=== PATIENT | male | born 1970 | race African-American/Black ===

== ENCOUNTER 2017-07-04 01:07 | Emergency (ER) | payer SELFPAY ==
[~2017-07-04] VITALS: Ht 188 cm; Wt 93.4 kg
[2017-07-04 01:13] VITALS: BP 170/127
[2017-07-04] MEDS ORDERED: cloNIDine HCL 0.1 MG TAB ONE (01:16)
[2017-07-04] MEDS ORDERED: cloNIDine HCL 0.1 MG TAB PO ONE (01:30)
== END 2017-07-04 03:01 | disposition left against medical advice (07) ==
LOC: ER 01:11
DX: S01.411A Laceration without foreign body of right cheek and temporomandibular area, initial encounter (principal); Z53.21 Procedure and treatment not carried out due to patient leaving prior to being seen by health care provider; W19.XXXA Unspecified fall, initial encounter; Y93.89 Activity, other specified; Y99.8 Other external cause status; Y92.89 Other specified places as the place of occurrence of the external cause

== ENCOUNTER 2017-07-05 13:02 | Emergency (ER) | payer SELFPAY ==
[~2017-07-05] VITALS: Ht 188 cm; Wt 95.3 kg
[2017-07-05 14:13] VITALS: BP 157/115
== END 2017-07-05 15:46 | disposition home or self-care (01) ==
LOC: ER 13:05
DX: S02.92XA Unspecified fracture of facial bones, initial encounter for closed fracture (principal); S01.83XA Puncture wound without foreign body of other part of head, initial encounter; W19.XXXA Unspecified fall, initial encounter; Y93.89 Activity, other specified; Y99.8 Other external cause status; Y92.89 Other specified places as the place of occurrence of the external cause
CPT/HCPCS: 70450; 70480

== ENCOUNTER 2019-04-28 14:02 | Emergency (ER) | payer MEDICAID ==
[~2019-04-28] VITALS: Ht 188 cm; Wt 90.7 kg
[2019-04-28 15:16] VITALS: BP 152/100
== END 2019-04-28 17:52 | disposition home or self-care (01) ==
LOC: ER 14:07
DX: S01.511A Laceration without foreign body of lip, initial encounter (principal); Y08.89XA Assault by other specified means, initial encounter; Y93.89 Activity, other specified; Y99.8 Other external cause status; Y92.89 Other specified places as the place of occurrence of the external cause
CPT/HCPCS: 12013; 71101

== ENCOUNTER 2019-05-17 16:00 | Emergency (ER) | payer MEDICAID ==
[~2019-05-17] VITALS: Ht 188 cm; Wt 90.7 kg
[2019-05-17 17:07] VITALS: BP 161/101
== END 2019-05-17 17:20 | disposition home or self-care (01) ==
LOC: ER 16:00
DX: S01.511D Laceration without foreign body of lip, subsequent encounter (principal); I10 Essential (primary) hypertension; X58.XXXD Exposure to other specified factors, subsequent encounter

== ENCOUNTER 2019-05-23 13:41 | Emergency (ER) | payer MEDICAID ==
[~2019-05-23] VITALS: Ht 188 cm; Wt 88.5 kg
[2019-05-23] MEDS ORDERED: SODIUM CHLORIDE 0.9% 1,000 ML IV ONE (14:15)
[2019-05-23] MEDS ORDERED: LORazepam 2MG/ML-1ML VIAL IV ONE (14:15)
[2019-05-23 15:07] LABS: Basophils # (auto) 0 uL; Eosinophils # (auto) 0.2 uL; Eosinophils % (auto) 5.1 % (0.0-7.0); Hematocrit 39.8 % (41.0-53.0); Hemoglobin 13.6 g/dL (13.5-17.5); Lymphocytes # (auto) 1.2 uL; Lymphocytes % (auto) 36.8 % (10.0-50.0); Mean Corpuscular Hemoglobin 30.9 pg (28.0-32.0); Mean Corpuscular Hgb Conc. 34.3 g/dL (32.0-36.0); Mean Corpuscular Volume 90.2 fL (80.0-100.0); Monocytes # (auto) 0.3 uL; Monocytes % (auto) 8.2 % (0.0-12.0); Neutrophils # (auto) 1.6 uL; Neutrophils % (auto) 48.9 % (37.0-80.0); Platelet Count (auto) 250 10^3/uL (140-450); Red Blood Cells 4.41 10^6/uL (4.5-5.90); Red Cell Distribution Width 13.2 % (11.8-14.3); White Blood Cell 3.4 10^3/uL (4.4-10.8)
[2019-05-23 15:31] LABS: Albumin 3.5 g/dL (3.4-5.0); BUN/Creatinine Ratio 16.7; Calcium 8.6 mg/dL (8.5-10.1); Potassium 4.2 mmol/L (3.5-5.1)
[2019-05-23 15:33] LABS: Bilirubin, Total 0.3 mg/dL (0.2-1.0); Total Protein 7.7 g/dL (6.4-8.2)
[2019-05-23 22:20] LABS: Alcohol, Urine < 3.0 mg/dL (0-5); Amphetamine Screen, Urine POSITIVE (NEGATIVE); Barbiturate Scree,Urine NEGATIVE (NEGATIVE); Benzodiazephine Screen, Urine NEGATIVE (NEGATIVE); Cannabinoid Screen, Urine NEGATIVE (NEGATIVE); Cocaine Screen, Urine NEGATIVE (NEGATIVE); Opiate Scree,Urine NEGATIVE (NEGATIVE); Phencyclidine Screen, Urine NEGATIVE (NEGATIVE)
[2019-05-24 08:31] VITALS: BP 150/93
== END 2019-05-24 09:48 | disposition home or self-care (01) ==
LOC: ER 13:41 → EDBD 13:41 → ER 05-24 09:48
DX: F31.9 Bipolar disorder, unspecified (principal); R45.851 Suicidal ideations; I10 Essential (primary) hypertension; F17.210 Nicotine dependence, cigarettes, uncomplicated; F12.10 Cannabis abuse, uncomplicated; F15.10 Other stimulant abuse, uncomplicated; F11.10 Opioid abuse, uncomplicated; F14.10 Cocaine abuse, uncomplicated; F80.81 Childhood onset fluency disorder; R93.0 Abnormal findings on diagnostic imaging of skull and head, not elsewhere classified; Z59.0 Homelessness
CPT/HCPCS: 36415; 70450; 80053; 80307; 85025; 86703; 86803; 94761; 96374; 99284; J2060; J7030

== ENCOUNTER 2023-11-16 14:24 | Inpatient (IN) | payer MEDICAID ==
[~2023-11-16] VITALS: Ht 188 cm; Wt 238.2 kg
[2023-11-16 14:53] LABS: Basophils # (auto) 0 10 ^3/uL (0-0.2); Basophils % (auto) 0.4 % (0.0-2.0); Eosinophils # (auto) 0 10 ^3/uL (0-0.8); Eosinophils % (auto) 0.6 % (0.0-7.0); Hematocrit 46.2 % (41.0-53.0); Lymphocytes # (auto) 1.6 10 ^3/uL (0.4-5.4); Lymphocytes % (auto) 28.1 % (10.0-50.0); Mean Corpuscular Hemoglobin 33.8 pg (28.0-32.0); Mean Corpuscular Hgb Conc. 34.6 g/dL (32.0-36.0); Mean Corpuscular Volume 97.7 fL (80.0-100.0); Monocytes # (auto) 0.6 10 ^3/uL (0-1.3); Monocytes % (auto) 9.8 % (0.0-12.0); Neutrophils # (auto) 3.6 10 ^3/uL (1.6-8.6); Neutrophils % (auto) 61.1 % (37.0-80.0); Nucleated Red Blood Cells % 0.2 %; Red Blood Cells 4.73 10^6/uL (4.5-5.90); Red Cell Distribution Width 13.4 % (11.8-14.3); White Blood Cell 5.8 10^3/uL (4.4-10.8)
[2023-11-16] MEDS: SODIUM CHLORIDE 0.9% 1,000 ML IV ONE (14:53)
[2023-11-16 15:09] LABS: Partial Thromboplastin Time 27.6 SEC (24.5-34.5); Prothrombin Time 10.5 sec (9.3-11.8)
[2023-11-16 15:12] LABS: Alanine Aminotransferase 119 U/L (7-40); Albumin 4.5 g/dL (3.2-4.8); Alkaline Phosphatase 91 U/L (46-116); Anion Gap 16 (5-15); Aspartate Aminotransferase 178 U/L (13-40); BUN/Creatinine Ratio 8.3 (10.0-20.0); Blood Urea Nitrogen 14 mg/dL (9-23); Calcium 9.6 mg/dL (8.7-10.4); Carbon Dioxide 19 mmol/L (20-30); Chloride 100 mmol/L (98-107); Glucose 133 mg/dL (74-106); Magnesium 2.2 mg/dL (1.6-2.6); Potassium 3.4 mmol/L (3.5-5.1); Sodium 135 mmol/L (136-145)
[2023-11-16 15:13] LABS: Total Protein 7.7 g/dL (5.7-8.2)
[2023-11-16 17:36] LABS: Amphetamine Screen, Urine Neg (NEGATIVE); Barbiturate Scree,Urine Neg (NEGATIVE); Benzodiazephine Screen, Urine Neg (NEGATIVE); Cannabinoid Screen, Urine Neg (NEGATIVE); Cocaine Screen, Urine Neg (NEGATIVE); Opiate Scree,Urine Neg (NEGATIVE); Phencyclidine Screen, Urine Neg (NEGATIVE)
[2023-11-16 17:41] LABS: Urine Bacteria NONE SEEN /hpf (None Seen); Urine Blood Negative /uL (Negative); Urine Clarity HAZY (Clear); Urine Color Brown (Yellow); Urine Hyaline Cast MANY /lpf (0 - 2); Urine Mucus FEW (None Seen); Urine Protein, UAD 2+ (Negative); Urine Specific Gravity 1.037 (1.001-1.035); Urine WBC 3 /hpf (0 - 3); Urine pH 5.5 (5.0-8.0)
[2023-11-16] MEDS ORDERED: ACETAMINOPHEN 325 MG TAB PO PRN (22:15)
[2023-11-16] MEDS: HYDROcodone-ACET 5/325MG TAB PO PRN (22:28)
[2023-11-16] MEDS: SODIUM CHLORIDE 0.9% 1,000 ML IV SCH (22:30)
[2023-11-16] MEDS ORDERED: MORPHINE SULFATE INJ 2 MG/ml SYRG IV PRN (22:45)
[2023-11-16] MEDS ORDERED: NITROGLYCERIN 0.4 MG SL TAB SL PRN (22:45)
[2023-11-16 22:49] VITALS: PULSE 110; RESP 16; O2SAT 97
[2023-11-16] MEDS: hydrALAZINE HCL 20 MG/ML VL IV PRN (22:50)
[2023-11-17] MEDS: ONDANSETRON HCL 4 MG/2 ML VIAL IV PRN (00:32)
[2023-11-17 04:46] LABS: Basophils # (auto) 0 10 ^3/uL (0-0.2); Basophils % (auto) 0.6 % (0.0-2.0); Eosinophils # (auto) 0.1 10 ^3/uL (0-0.8); Eosinophils % (auto) 1.2 % (0.0-7.0); Hematocrit 43.4 % (41.0-53.0); Hemoglobin 14.9 g/dL (13.5-17.5); Lymphocytes # (auto) 1.4 10 ^3/uL (0.4-5.4); Lymphocytes % (auto) 26.6 % (10.0-50.0); Mean Corpuscular Hemoglobin 33.2 pg (28.0-32.0); Mean Corpuscular Hgb Conc. 34.3 g/dL (32.0-36.0); Mean Corpuscular Volume 96.7 fL (80.0-100.0); Monocytes # (auto) 0.5 10 ^3/uL (0-1.3); Monocytes % (auto) 9.1 % (0.0-12.0); Neutrophils # (auto) 3.3 10 ^3/uL (1.6-8.6); Neutrophils % (auto) 62.5 % (37.0-80.0); Nucleated Red Blood Cells % 0.1 %; Red Blood Cells 4.49 10^6/uL (4.5-5.90); Red Cell Distribution Width 13.3 % (11.8-14.3); White Blood Cell 5.3 10^3/uL (4.4-10.8)
[2023-11-17 05:03] LABS: Alanine Aminotransferase 92 U/L (7-40); Albumin 3.9 g/dL (3.2-4.8); Alkaline Phosphatase 77 U/L (46-116); Anion Gap 6 (5-15); Aspartate Aminotransferase 107 U/L (13-40); BUN/Creatinine Ratio 11.9 (10.0-20.0); Bilirubin, Total 1.3 mg/dL (0.2-1.0); Blood Urea Nitrogen 13 mg/dL (9-23); Calcium 9.2 mg/dL (8.7-10.4); Carbon Dioxide 25 mmol/L (20-30); Chloride 107 mmol/L (98-107); Glucose 108 mg/dL (74-106); Potassium 3.2 mmol/L (3.5-5.1); Sodium 138 mmol/L (136-145)
[2023-11-17 07:30] VITALS: PULSE 102; RESP 12; O2SAT 96
[2023-11-17] MEDS: POTASSIUM CHL 20 Meq TABLET PO ONE (09:23)
[2023-11-17] MEDS: MULTIPLE VITAMIN TAB PO SCH (09:33)
[2023-11-17] MEDS: THIAMINE 100mg/ml INJ (200mg/2ml VIAL) IV SCH (09:33)
[2023-11-17] MEDS: ASPirin 81 mg TAB PO SCH (09:34)
[2023-11-17] MEDS: FOLIC ACID 1 MG in D5W 5% 50 ML INJ SCH (09:44)
[2023-11-17] MEDS ORDERED: THIAMINE 100mg/ml INJ (200mg/2ml VIAL) IV ONE (10:45)
[2023-11-17] MEDS ORDERED: POTASSIUM EFFERVESENT TAB 25 MEQ PO ONE (10:45)
[2023-11-17] MEDS: SODIUM CHLORIDE 0.9% 1,000 ML IV SCH (10:47)
[2023-11-17] MEDS: METOPROLOL TARTRATE 25 MG TAB PO SCH (10:48)
[2023-11-17 11:00] LABS: Erythrocyte Sedimentation Rate 3 mm/hr (0-20)
[2023-11-17 11:06] LABS: CRP High Sensitivity 0.57 mg/dL (<1.0)
[2023-11-17] MEDS: LORazepam 2MG/ML-1ML VIAL ONE (11:25)
[2023-11-17] MEDS: LORazepam 2MG/ML-1ML VIAL IV ONE (11:28)
[2023-11-17] MEDS: chlordiazePOXIDE HCL 5 MG CAP PO SCH (13:34)
[2023-11-17] MEDS: IOHEXOL 350 MG/ML 100ML IJ ONE (14:02)
[2023-11-17 15:23] VITALS: BP 141/95; PULSE 106; RESP 16; TEMP 98.1; O2SAT 98
[2023-11-17 17:00] VITALS: BP 153/103; PULSE 93; RESP 16; TEMP 98.2; O2SAT 95
[2023-11-17] MEDS ORDERED: ATOR40TA52 PO (17:59)
[2023-11-17] MEDS ORDERED: QUET100T47 PO (18:01)
[2023-11-17] MEDS ORDERED: LISI2.5T47 PO (18:01)
[2023-11-17] MEDS ORDERED: MEMA1TAB5 PO (18:01)
[2023-11-17] MEDS ORDERED: AMLO1TAB22 PO (18:01)
[2023-11-17] MEDS ORDERED: DIAZ10TA3 PO (18:02)
[2023-11-17 20:00] VITALS: PULSE 111; PULSE 117; RESP 18
[2023-11-17] MEDS: MORPHINE SULFATE INJ 2 MG/ml SYRG IV PRN (20:00)
[2023-11-17 21:00] VITALS: BP 163/110; PULSE 105; RESP 20; TEMP 98.2; O2SAT 97
[2023-11-17] MEDS: ATORVASTATIN 20 MG TAB PO SCH (21:14)
[2023-11-18] VITALS (8 sets, daily range): BP systolic 139–169; BP diastolic 65–108; PULSE 90–116; RESP 16–20; TEMP 98–98.8; O2SAT 90–99
[2023-11-18 07:04] LABS: Triglycerides 197 mg/dL (< 150)
[2023-11-18 07:05] LABS: LDL Cholesterol 105 mg/dL (< 100)
[2023-11-18 07:06] LABS: Cholesterol 185 mg/dL (< 200); HDL Cholesterol 57 mg/dL (40-59)
[2023-11-18] MEDS: THIAMINE 100mg/ml INJ (200mg/2ml VIAL) IV SCH (10:08)
[2023-11-18] MEDS: chlordiazePOXIDE HCL 25 MG CAP PO PRN (16:00)
[2023-11-18] MEDS: DOCUSATE SOD 100 MG CAP PO PRN (22:43)
[2023-11-19] VITALS (7 sets, daily range): BP systolic 124–163; BP diastolic 53–103; PULSE 62–113; RESP 16–20; TEMP 97.8–98.6; O2SAT 91–98
== END 2023-11-19 16:15 | disposition home or self-care (01) | DRG 199 ==
LOC: ER 14:24 → TELE 22:48 → TELE-CENTR 11-17 14:54
PROVIDERS: ADMIT Nurse Practitioner Family; ATTEND Internal Medicine
DX: I16.0 Hypertensive urgency (principal); N17.0 Acute kidney failure with tubular necrosis; K76.0 Fatty (change of) liver, not elsewhere classified; E87.6 Hypokalemia; R00.0 Tachycardia, unspecified; F10.229 Alcohol dependence with intoxication, unspecified; R73.9 Hyperglycemia, unspecified; I10 Essential (primary) hypertension; F17.210 Nicotine dependence, cigarettes, uncomplicated; R74.01 Elevation of levels of liver transaminase levels; Z79.899 Other long term (current) drug therapy
CPT/HCPCS: 36415; 70450; 71045; 71275; 76705; 80053; 80061; 80307; 80320; 81001; 82140; 82150; 82550; 83036; 83690; 83735; 83880; 84484; 85025; 85379; 85610; 85652; 85730; 86141; 93005; 96361; 96374; 96375; 97163; G0378; J2405; J7060